=== PATIENT | female | born 1985 | race Caucasian/White ===

== ENCOUNTER 2016-08-07 10:39 | Emergency (ER) | payer BC ==
[~2016-08-07] VITALS: Wt 69.9 kg
[~2016-08-07 10:39] MED LIST: HYDR-3498 PO; IBUP-1542 PO; IBUP800T25 PO; LORA-441 PO; METR500T PO; SULF1TAB7; VIC; denies meds & allergies
[2016-08-07] MEDS ORDERED: IBUP-1542 PO (12:02)
--- NOTE | 2016-08-07 12:17 | ERD ---
ER Documentation Chief Complaint Date/Time DATE: 08/07/16 TIME: 12:14 Chief Complaint left thumb pain, had nail avulsion HPI Patient is a 31-year-old female with no medical problems who presents with a fingernail issue. She said that her left thumb nail came off last night. She wears fake nails and clot her fingernail on something last night. The whole nail pulled off of her finger. She has had no treatment as of yet. She said that it is painful. She put a Band-Aid on. She is right-handed. She works as a sanding machine operator. ROS All systems reviewed and are negative except as per history of present illness. Medications Home Meds Active Scripts Ibuprofen* (Motrin*) 600 Mg Tab, 600 MG PO Q6H Y for PAIN AND OR ELEVATED TEMP, #30 TAB Prov:DA WARNER MD 08/07/16 Lorazepam* (Ativan*) 0.5 Mg Tablet, 0.5 MG PO Q8, #15 TAB Prov:TIESHA CALLAHAN MD 09/21/15 Hydrocodone Bit-Acetaminophen* ([place]*) 5-325 Mg Tab, 1 TAB PO Q6 Y for SEVERE PAIN LEVEL 7-10, #7 TAB Prov:EAGLE RICHARD. CASTING MACHINE CONTROL BOARD OPERATOR 04/12/15 Ibuprofen* (Motrin*) 800 Mg Tab, 800 MG PO Q6H Y for PAIN AND OR ELEVATED TEMP, #30 TAB Prov:EAGLE RICHARD. CASTING MACHINE CONTROL BOARD OPERATOR 04/12/15 Hydrocodone Bit-Acetaminophen* ([place]*) 5-325 Mg Tab, 1 TAB PO Q4H Y for PAIN, # 20 TAB Prov:CELESTINA ZAVALETA PA-C 03/23/15 Ibuprofen* (Ibuprofen*) 600 Mg Tablet, 600 MG PO Q6, #30 TAB Prov:CELESTINA ZAVALETA PA-C 03/23/15 Metronidazole* (Flagyl*) 500 Mg Tablet, 500 MG PO TID for 7 Days, TAB Prov:CELESTINA ZAVALETA PA-C 03/23/15 Reported Medications [denies meds & allergies] No Conflict Check 05/19/13 Sulfamethoxazole-Trimethoprim* (Bactrim* DS) 1 Tab Tab 11/13/09 Acetaminophen/Hydrocodone (Vicodin) 1 Tab Tab 11/13/09 Allergies Allergies: Coded Allergies: No Known Allergy (Verified , 04/12/15) PMhx/Soc Medical and Surgical Hx: pt denies Medical Hx History of Surgery: No Anesthesia Reaction: No Hx Neurological Disorder: No Hx Respiratory Disorders: No Hx Cardiac Disorders: No Hx Psychiatric Problems: No Hx Miscellaneous Medical Probl: No Hx Alcohol Use: No Hx Substance Use: No Hx Tobacco Use: No FmHx Family History: No diabetes Physical Exam Vitals Vital Signs Date Time Temp Pulse Resp B/P Pulse Ox O2 Delivery O2 Flow Rate FiO2 08/07/16 10:41 98.6 82 20 127/82 99 Physical Exam Const: No acute distress Head: Atraumatic Eyes: Normal Conjunctiva ENT: Normal External Ears, Nose and Mouth. Neck: Full range of motion..~ No meningismus. Resp: Clear to auscultation bilaterally Cardio: Regular rate and rhythm, no murmurs Abd: Soft, non tender, non distended. Normal bowel sounds Skin: Left thumb nail is completely avulsed and there is no longer any nail. There does appear to be damage to the nail bed as well. Back: No midline or flank tenderness Ext: No cyanosis, or edema Neur: Awake and alert Psych: Normal Mood and Affect Results 24 hrs Current Medications Medications (Trade) Dose Ordered Sig/Erin Route PRN Reason Start Time Stop Time Status Last Admin Dose Admin Diphtheria/ Tetanus/Acell Pertussis (Adacel) 0.5 ml ONCE ONCE IM* 08/07/16 12:30 08/07/16 12:31 Ibuprofen (Motrin) 800 mg ONCE ONCE PO 08/07/16 12:30 08/07/16 12:31 Procedures/MDM Patient is a 31-year-old female with no medical problems who presents with left thumb nail avulsion. The patient caught her finger on something and the nail removed in totality. The patient no longer has any nail at all. The patient will be given a tetanus shot and ibuprofen. The patient will have a sterile dressing applied. I told her that this fingernail may grow back but it may not. The patient will need to follow-up with a primary doctor the local clinics within 24-48 hours for wound check. There is no sign of infection at this time. Departure Diagnosis: Primary Impression: Fingernail avulsion Encounter type: initial encounter Qualified Code: S61.309A - Fingernail avulsion, initial encounter Additional Impression: Pain of finger Laterality: left Qualified Code: M79.645 - Pain of finger of left hand Condition: Fair Patient Instructions: Nail Avulsion, Complete [facility] Usted se love hecho un examen mdico de control que le indica que no est en jen condicin que requiera tratamiento urgente en el Departamento de Emergencia. Un estudio ms profundo y el tratamiento de tucker condicin pueden esperar sin ningn riesgo hasta que usted sea atendida/o en el consultorio de tucker mdico o jen cl annie. Es responsabilidad suya arreglar jen jyoti para el seguimiento del franck. MANEJO DE CONDICIONES NO URGENTES EN EL FUTURO 1) Si usted tiene un mdico de atencin primaria: Usted debera llamar a tucker mdico de atencin primaria antes de venir al departamento de emergencia. Despus de las horas de consultorio, tucker doctor o tucker asociado/a est disponible por telfono. El mdico o enfermero de navin en el servicio telefnico puede asesorarle por chiara medio para atender el problema, o franck contrario se puede programar jen jyoti. 2) Si usted no tiene un mdico de atencin primaria: Llame al mdico o clnica de referencia que aparece abajo chantelle las horas de consultorio para hacer jen jyoti para que le vean. CLINICAS: [facility] [phone] [facility] [phone] [facility] [phone] [address] [facility]. [place] [id number] [phone] [place] [id number] [phone] [facility]. [phone] [address] Additional Instructions: Llame al doctor MAANA y derek jen JYOTI PARA DENTRO DE 1-2 VALDOVINOS.Dgale a la secretaria que nosotros le instruimos hacer esta jyoti.Avise o llame si tucker condicin se empeora antes de la jyoti. Regresa aqui si peor o no mejor. DA WARNER MD Aug 07, 2016 12:17
[2016-08-07] MEDS ORDERED: IBUPROFEN 800 MG TAB PO ONE (12:30)
[2016-08-07] MEDS ORDERED: DIPHTH/TET/ACEL PERTUSS (ADULT) 0.5 ML VIAL IM* ONE (12:30)
== END 2016-08-07 13:00 | disposition home or self-care (01) ==
LOC: FTE 10:39
DX: S61.102A Unspecified open wound of left thumb with damage to nail, initial encounter (principal); W23.1XXA Caught, crushed, jammed, or pinched between stationary objects, initial encounter; Y92.9 Unspecified place or not applicable; Z23 Encounter for immunization
CPT/HCPCS: 90471; 90715; 99283; Z7610

== ENCOUNTER 2016-11-17 20:35 | Emergency (ER) | END 2016-11-17 22:29 | disposition home or self-care (01) | DX: S93.402A Sprain of unspecified ligament of left ankle, initial encounter (principal); X50.9XXA Other and unspecified overexertion or strenuous movements or postures, initial encounter; Y92.89 Other specified places as the place of occurrence of the external cause | CPT/HCPCS: 73610; 99283; Z7610 ==

== ENCOUNTER 2016-12-11 19:30 | Emergency (ER) | payer BC ==
[~2016-12-11] VITALS: Ht 152.4 cm; Wt 80.0 kg
[2016-12-11 19:33] VITALS: Ht 152.4 cm; Wt 80.0 kg
[2016-12-11] MEDS ORDERED: LORAZEPAM 1 MG TAB PO ONE (21:00)
[2016-12-11] MEDS ORDERED: ACETAMINOPHEN 325 MG TAB PO ONE (21:00)
[2016-12-11 21:12] LABS: URINE BLOOD (Dip) POC 1+ (NEGATIVE)
--- NOTE | 2016-12-11 21:34 | RADRPT ---
PROCEDURE: XR Chest AP portable CLINICAL INDICATION: Shortness of breath TECHNIQUE: An AP portable radiograph of the chest was submitted. COMPARISON: None. FINDINGS: Support Hardware: None Cardiovascular: The cardiovascular silhouette appears unremarkable. Lung Marie: The lung marie appear clear with no nodule, alveolar infiltrate, or interstitial promi nence evident. Pleural Spaces: No pneumothorax or pleural effusion is identified. Osseous Structures: The osseous structures appear intact. Soft Tissues: The soft tissues appear generous. IMPRESSION: Unremarkable portable chest. Physician Chicho Date Time Electronically viewed and signed by Shilpa Ridley Physician on 12/11/2016 21:33 /
[2016-12-11] MEDS ORDERED: LORA-441 PO (21:43)
[2016-12-11] MEDS ORDERED: CEPH-443 PO (21:48)
--- NOTE | 2016-12-11 23:07 | ERD ---
ER Documentation Chief Complaint Date/Time DATE: 12/11/16 TIME: 23:00 Chief Complaint dizziness x 2 days, visual problem, left ankle pain- twisted left foot HPI This patient is a 31-year-old female presenting to the emergency department with complaints of vague anxiety symptoms including dizziness, tingling, and shortness of breath. She first noticed her symptoms yesterday and they lasted for an intermittent amount of time. Symptoms have become constant today. The patient has had similar anxiety symptoms in the past. Additionally she complains of left ankle pain which has been ongoing intermittently since she was diagnosed with a sprain approximately 2 weeks ago. She denies other symptoms currently. ROS All systems reviewed and are negative except as per history of present illness. Medications Home Meds Active Scripts Cephalexin* (Keflex*) 500 Mg Capsule, 500 MG PO BID for 7 Days, #14 CAP Prov:JARVIS VICENTE PA-C 12/11/16 Lorazepam* (Ativan*) 0.5 Mg Tablet, 0.5 MG PO Q8, #10 TAB Prov:JARVIS VICENTE PA-C 12/11/16 Ibuprofen* (Motrin*) 600 Mg Tab, 600 MG PO Q6H Y for PAIN AND OR ELEVATED TEMP, #30 TAB Prov:EAGLE RICHARD NP 11/17/16 Ibuprofen* (Motrin*) 600 Mg Tab, 600 MG PO Q6H Y for PAIN AND OR ELEVATED TEMP, #30 TAB Prov:DA WARNER MD 08/07/16 Lorazepam* (Ativan*) 0.5 Mg Tablet, 0.5 MG PO Q8, #15 TAB Prov:TIESHA CALLAHAN MD 09/21/15 Hydrocodone Bit-Acetaminophen* ([place]*) 5-325 Mg Tab, 1 TAB PO Q6 Y for SEVERE PAIN LEVEL 7-10, #7 TAB Prov:EAGLE RICHARD NP 04/12/15 Ibuprofen* (Motrin*) 800 Mg Tab, 800 MG PO Q6H Y for PAIN AND OR ELEVATED TEMP, #30 TAB Prov:EAGLE RICHARD NP 04/12/15 Hydrocodone Bit-Acetaminophen* ([place]*) 5-325 Mg Tab, 1 TAB PO Q4H Y for PAIN, # 20 TAB Prov:CELESTINA ZAVALETA PA-C 03/23/15 Ibuprofen* (Ibuprofen*) 600 Mg Tablet, 600 MG PO Q6, #30 TAB Prov:CELESTINA ZAVALETA PA-C 03/23/15 Metronidazole* (Flagyl*) 500 Mg Tablet, 500 MG PO TID for 7 Days, TAB Prov:CELESTINA ZAVALETA PA-C 03/23/15 Reported Medications [denies meds & allergies] No Conflict Check 05/19/13 Sulfamethoxazole-Trimethoprim* (Bactrim* DS) 1 Tab Tab 11/13/09 Acetaminophen/Hydrocodone (Vicodin) 1 Tab Tab 11/13/09 Allergies Allergies: Coded Allergies: No Known Allergy (Verified , 04/12/15) PMhx/Soc Medical and Surgical Hx: pt denies Medical Hx, pt denies Surgical Hx History of Surgery: Yes (cs x 3) Anesthesia Reaction: No Hx Neurological Disorder: No Hx Respiratory Disorders: No Hx Cardiac Disorders: No Hx Psychiatric Problems: No Hx Miscellaneous Medical Probl: No Hx Alcohol Use: No Hx Substance Use: No Hx Tobacco Use: No Smoking Status: Never smoker Physical Exam Vitals Vital Signs Date Time Temp Pulse Resp B/P Pulse Ox O2 Delivery O2 Flow Rate FiO2 12/11/16 19:33 100.0 112 20 128/66 100 Physical Exam Const: The patient is nontoxic-appearing but she is acutely anxious. Head: Atraumatic Eyes: Normal Conjunctiva ENT: Normal External Ears, Nose and Mouth. Neck: Full range of motion..~ No meningismus. Resp: Clear to auscultation bilaterally Cardio: Regular rate and rhythm, no murmurs Abd: Soft, non tender, non distended. Normal bowel sounds Skin: No petechiae or rashes Back: No midline or flank tenderness Ext: The patient is wearing a brace on her left ankle but she has full range of motion. Neur: Awake and alert Psych: Normal Mood and Affect Results 24 hrs Laboratory Tests Test 12/11/16 21:19 Bedside Urine pH (LAB) 5.5 Bedside Urine Protein (LAB) 1+ Bedside Urine Glucose (UA) Negative Bedside Urine Ketones (LAB) Negative Bedside Urine Blood 1+ Bedside Urine Nitrite (LAB) Positive Bedside Urine Leukocyte Esterase (L Negative Current Medications Medications (Trade) Dose Ordered Sig/Erin Route PRN Reason Start Time Stop Time Status Last Admin Dose Admin Lorazepam (Ativan) 1 mg ONCE ONCE PO 12/11/16 21:00 12/11/16 21:01 DC 12/11/16 21:31 Acetaminophen (Tylenol Tab) 650 mg ONCE ONCE PO 12/11/16 21:00 12/11/16 21:01 DC 12/11/16 21:31 [place] [address] Radiology Main Line: [phone] DIAGNOSTIC IMAGING REPORT Patient: JACKIE GREEN : 1985 Age: 31 Sex: F MR #: [id number] DOS: 12/11/16 0000 Ordering MD: JARVIS VICENTE PA-C Location: FT Room/Bed: PROCEDURE: XR Chest AP portable CLINICAL INDICATION: Shortness of breath TECHNIQUE: An AP portable radiograph of the chest was submitted. COMPARISON: None. FINDINGS: Support Hardware: None Cardiovascular: The cardiovascular silhouette appears unremarkable. Lung Marie: The lung marie appear clear with no nodule, alveolar infiltrate, or interstitial prominence evident. Pleural Spaces: No pneumothorax or pleural effusion is identified. Osseous Structures: The osseous structures appear intact. Soft Tissues: The soft tissues appear generous. IMPRESSION: Unremarkable portable chest. Physician Chicho Date Time Electronically viewed and signed by Physician Chicho on 12/11/2016 21:33 RH/ CC: JARVIS VICENTE PA-C Procedures/MDM 31-year-old female presenting to the emergency department with acute anxiety symptoms. On physical examination the patient is slightly anxious but nontoxic- appearing. Initial review of vital signs showed slightly elevated temperature 100.0F. Cardiac and respiratory physical examination is benign. Chest x-ray is negative for acute findings. The patient was given p.o. Ativan and p.o. Tylenol. Temperature reduced prior to discharge. Urine dip was concerning for uncomplicated urinary tract infection. Urine was negative. The patient is stable for outpatient management with a prescription for Ativan for acute anxiety reaction and cephalexin for acute cystitis. The patient agreed with the discharge plan of diagnosis. The patient denied all suicidal and homicidal ideation. I have low suspicion for pyelonephritis, sepsis, or other emergent conditions. The patient is to have close follow-up with her primary care physician within the next 1-2 days. Strict ER return precautions were discussed and the patient demonstrated good understanding. EKG: Interpreted by ED physician, Dr. Placido Miller Rate/Rhythm: Normal sinus rhythm with a rate of 93 bpm. QRS, ST, T-waves: No changes consistent w/ acute ischemia Impression: No evidence of ischemia or arrhythmia Departure Diagnosis: Primary Impression: Urinary tract infection Additional Impression: Anxiety reaction Condition: Fair Patient Instructions: Your Body's Response to Anxiety, Understanding Urinary Tract Infections (UTIs), Anxiety Reaction Additional Instructions: No mas mejor en 2-3 caro, regresar. Mas peor en 24 horas, regresear rapidamente. Ir a doctor primario in 5-7 caro. Usar instrucciones cuando shania medicamento. JARVIS VICENTE PA-C Dec 11, 2016 23:07
== END 2016-12-11 21:59 | disposition home or self-care (01) ==
LOC: FTE 19:30
DX: N39.0 Urinary tract infection, site not specified (principal); F41.1 Generalized anxiety disorder
CPT/HCPCS: 71010; 81003; 93005; Z7610

== ENCOUNTER 2017-04-13 00:49 | Emergency (ER) | payer BC ==
[~2017-04-13] VITALS: Ht 162.6 cm; Wt 84.7 kg
[~2017-04-13 00:49] MED LIST changes: +CEPH-443 PO
[2017-04-13 00:51] VITALS: Ht 162.6 cm; Wt 84.7 kg
[2017-04-13] MEDS ORDERED: KETOROLAC 60 MG INJ IM STA (03:15)
[2017-04-13] MEDS ORDERED: DIAZEPAM 5 MG TAB PO ONE (03:30)
[2017-04-13] MEDS ORDERED: ACETAMINOPHEN 325 MG TAB PO ONE (03:30)
[2017-04-13 03:32] LABS: URINE BLOOD (Dip) POC 1+ (NEGATIVE)
--- NOTE | 2017-04-13 04:53 | RADRPT ---
PROCEDURE: Lumbar spine. CLINICAL INDICATION: Low back pain. TECHNIQUE: Three views including AP, lateral and cone-down lateral view of the lumbar spine were obtained. COMPARISON: None. FINDINGS: There is no acute fracture or subluxation. Lumbar vertebral body heights and alignment are within n ormal limits. Intervertebral disk spaces are within normal limits. The posterior elements are unre markable. IMPRESSION: No evidence of fracture or subluxation. .Boris Hurst MD, MD Date Time Electronically viewed and signed by .Boris Hurst MD, on 04/13/2017 04:53 .T/
[2017-04-13] MEDS ORDERED: TRAM50TA2 PO (05:13)
[2017-04-13] MEDS ORDERED: CEPH-443 PO (05:13)
[2017-04-13] MEDS ORDERED: TYL500 PO (05:14)
[2017-04-13 05:31] VITALS: BP 101/64; PULSE 78; RESP 16; TEMP 98.2
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
== END 2017-04-13 05:20 | disposition home or self-care (01) ==
LOC: FTE 00:49
DX: M54.5 Low back pain (principal); N39.0 Urinary tract infection, site not specified
CPT/HCPCS: 72100; 81003; 87880; 96372; 99284; J1885; Z7610